=== PATIENT | female | born 1955 | race African-American/Black ===

== ENCOUNTER 2022-05-03 15:28 | Inpatient (IN) | payer OTHER ==
[2022-05-03 17:40] VITALS: BMI 22.2
[2022-05-03] MEDS ORDERED: MAGNESIUM CITRATE 300 ML BOTTLE PO PRN (18:22)
[2022-05-03] MEDS ORDERED: ACETAMINOPHEN 325 MG TABLET (FP) PO PRN (18:22)
[2022-05-03] MEDS ORDERED: MAGNESIUM HYDROX 2400MG/30ML ORAL SUSPENSION 30 ML CUP PO PRN (18:22)
[2022-05-03] MEDS ORDERED: guaiFENesin 200 MG/10 ML 10 ML UNIT-DOSE CUPS PO PRN (18:22)
[2022-05-03] MEDS ORDERED: LOPERAMIDE HCL 2 MG CAPSULE PO PRN (18:22)
[2022-05-03] MEDS ORDERED: P-EPHED 60MG/TRIPROLIDI 2.5MG TABLET PO PRN (18:22)
[2022-05-03] MEDS ORDERED: MAG HYDROX/AL HYDROX/SIMETH 30 ML UNIT-DOSE CUP PO PRN (18:22)
[2022-05-03] MEDS ORDERED: cloNIDine HCL 0.1 MG TABLET PO ONE (22:30)
[2022-05-03] MEDS: THIAMINE HCL 100 MG TABLET (FP) PO SCH (22:31)
[2022-05-03] MEDS: ATORVASTATIN CA 20 MG TABLET (FP) PO SCH (22:31)
[2022-05-03] MEDS: APIXABAN 5 MG TABLET PO SCH (22:31)
[2022-05-03] MEDS: MELATONIN 5 MG TABLETS PO SCH (22:31)
[2022-05-03] MEDS: GABAPENTIN 300 MG CAPSULE PO SCH (22:31)
[2022-05-03] MEDS: hydrOXYzine PAMOATE 25 MG CAPSULE (FP) PO SCH (22:31)
[2022-05-03] MEDS: PRENATAL VITAMINS W/ FOLIC ACID TABLET (FP) PO SCH (22:32)
[2022-05-03] MEDS: NICOTINE 7 MG/24 HOURS TOPICAL PATCH TD SCH (22:33)
[2022-05-04] MEDS: hydrOXYzine PAMOATE 25 MG CAPSULE (FP) PO SCH ×5 (07:41→22:02)
[2022-05-04] MEDS ORDERED: LIDOCAINE 5% TOPICAL PATCH TP SCH (10:00)
[2022-05-04] MEDS ORDERED: MULTIVITAMINS (DAILY MVI) TABLET (FP) PO SCH (10:00)
[2022-05-04] MEDS: PRENATAL VITAMINS W/ FOLIC ACID TABLET (FP) PO SCH (10:09)
[2022-05-04] MEDS: GABAPENTIN 300 MG CAPSULE PO SCH ×2 (10:09→21:27)
[2022-05-04] MEDS: ASPIRIN COATED 81 MG TABLET.EC PO SCH (10:09)
[2022-05-04] MEDS: FOLIC ACID 1 MG TABLET (FP) PO SCH (10:10)
[2022-05-04] MEDS: NICOTINE 7 MG/24 HOURS TOPICAL PATCH TD SCH (10:10)
[2022-05-04] MEDS: amLODIPine BESYLATE 10 MG TABLET (FP) PO SCH (10:10)
[2022-05-04] MEDS: FLUoxetine HCL 20 MG CAPSULE PO SCH (10:10)
[2022-05-04] MEDS: LIDOCAINE 5% TOPICAL PATCH TP SCH (10:11)
[2022-05-04] MEDS: APIXABAN 5 MG TABLET PO SCH ×2 (11:25→21:27)
[2022-05-04 14:01] LABS: HEMATOCRIT 40.3 % (32.4-45.2); HEMOGLOBIN 13.2 GM/dL (10.7-15.3); MCH 25.6 pg (25.7-33.7); MCHC 32.8 g/dl (32.0-36.0); MEAN CELL VOLUME 78.2 fl (80-96); MEAN PLT VOLUME 8.8 fl (7.5-11.1); PLATELET COUNT 316 10^3/uL (134-434); RBC 5.15 M/mm3 (3.60-5.2); WHITE BLOOD COUNT 7.9 K/mm3 (4.0-10.0)
[2022-05-04 14:08] LABS: ALBUMIN 4.5 g/dl (3.4-5.0); BLOOD UREA NITROGEN 15.1 mg/dL (7-18); CALCIUM 10.4 mg/dL (8.5-10.1)
[2022-05-04 14:12] LABS: BILIRUBIN,TOTAL 1.1 mg/dL (0.2-1); CREATININE 1.1 mg/dL (0.55-1.3)
[2022-05-04 14:13] LABS: TOT PROT 8.3 g/dl (6.4-8.2)
[2022-05-04 14:24] LABS: SYPHILIS W/ RPR CONF NON-REACTIVE (NONREACTIVE)
[2022-05-04 17:35] VITALS: RESP 18
[2022-05-04] MEDS: THIAMINE HCL 100 MG TABLET (FP) PO SCH (21:27)
[2022-05-04] MEDS: ATORVASTATIN CA 20 MG TABLET (FP) PO SCH (21:27)
[2022-05-04] MEDS: LIDOCAINE PATCH REMOVAL MC SCH (22:02)
[2022-05-04] MEDS: MELATONIN 5 MG TABLETS PO SCH (22:02)
[2022-05-05] MEDS: hydrOXYzine PAMOATE 25 MG CAPSULE (FP) PO SCH ×4 (07:06→21:11)
[2022-05-05] MEDS: PRENATAL VITAMINS W/ FOLIC ACID TABLET (FP) PO SCH (09:48)
[2022-05-05] MEDS: APIXABAN 5 MG TABLET PO SCH ×2 (09:49→21:09)
[2022-05-05] MEDS: FLUoxetine HCL 20 MG CAPSULE PO SCH ×2 (09:49→09:53)
[2022-05-05] MEDS: amLODIPine BESYLATE 10 MG TABLET (FP) PO SCH (09:49)
[2022-05-05] MEDS: GABAPENTIN 300 MG CAPSULE PO SCH ×2 (09:49→21:09)
[2022-05-05] MEDS: FOLIC ACID 1 MG TABLET (FP) PO SCH (09:49)
[2022-05-05] MEDS: ASPIRIN COATED 81 MG TABLET.EC PO SCH (09:49)
[2022-05-05] MEDS: LIDOCAINE 5% TOPICAL PATCH TP SCH (09:50)
[2022-05-05] MEDS: NICOTINE 7 MG/24 HOURS TOPICAL PATCH TD SCH (09:51)
[2022-05-05] MEDS: THIAMINE HCL 100 MG TABLET (FP) PO SCH (21:11)
[2022-05-05] MEDS: MELATONIN 5 MG TABLETS PO SCH (22:46)
[2022-05-05] MEDS: ATORVASTATIN CA 20 MG TABLET (FP) PO SCH (22:46)
[2022-05-05] MEDS: LIDOCAINE PATCH REMOVAL MC SCH (22:46)
[2022-05-06] MEDS: hydrOXYzine PAMOATE 25 MG CAPSULE (FP) PO SCH ×2 (06:14→09:55)
[2022-05-06] MEDS: NICOTINE 7 MG/24 HOURS TOPICAL PATCH TD SCH (09:53)
[2022-05-06] MEDS: PRENATAL VITAMINS W/ FOLIC ACID TABLET (FP) PO SCH (09:53)
[2022-05-06] MEDS: GABAPENTIN 300 MG CAPSULE PO SCH ×2 (09:54→21:10)
[2022-05-06] MEDS: FOLIC ACID 1 MG TABLET (FP) PO SCH (09:54)
[2022-05-06] MEDS: amLODIPine BESYLATE 10 MG TABLET (FP) PO SCH (09:54)
[2022-05-06] MEDS: ASPIRIN COATED 81 MG TABLET.EC PO SCH (09:54)
[2022-05-06] MEDS: LIDOCAINE 5% TOPICAL PATCH TP SCH (09:55)
[2022-05-06] MEDS: FLUoxetine HCL 20 MG CAPSULE PO SCH (09:56)
[2022-05-06] MEDS: APIXABAN 5 MG TABLET PO SCH ×2 (09:56→21:10)
[2022-05-06 10:35] LABS: URINE APPEARANCE CLEAR; URINE BILIRUBIN NEGATIVE (NEGATIVE); URINE COLOR YELLOW; URINE GLUCOSE (UA) TRACE (NEGATIVE); URINE KETONE NEGATIVE (NEGATIVE); URINE LEUK ESTERASE NEGATIVE (NEGATIVE); URINE NITRITE NEGATIVE (NEGATIVE); URINE PROTEIN NEGATIVE (NEGATIVE); URINE UROBILINOGEN 0.2 mg/dL (0.2-1.0)
[2022-05-06] MEDS ORDERED: hydrOXYzine PAMOATE 25 MG CAPSULE (FP) PO PRN (12:17)
[2022-05-06] MEDS ORDERED: NICOTINE 10 MG CARTRIDGE (INHALER) IH PRN (14:07)
[2022-05-06] MEDS: ATORVASTATIN CA 20 MG TABLET (FP) PO SCH (21:11)
[2022-05-06] MEDS: MELATONIN 5 MG TABLETS PO SCH (21:12)
[2022-05-06] MEDS: THIAMINE HCL 100 MG TABLET (FP) PO SCH (21:12)
[2022-05-06] MEDS: LIDOCAINE PATCH REMOVAL MC SCH (22:10)
[2022-05-07] MEDS: GABAPENTIN 300 MG CAPSULE PO SCH ×2 (09:51→21:11)
[2022-05-07] MEDS: PRENATAL VITAMINS W/ FOLIC ACID TABLET (FP) PO SCH (09:51)
[2022-05-07] MEDS: LIDOCAINE 5% TOPICAL PATCH TP SCH (09:51)
[2022-05-07] MEDS: ASPIRIN COATED 81 MG TABLET.EC PO SCH (09:52)
[2022-05-07] MEDS: amLODIPine BESYLATE 10 MG TABLET (FP) PO SCH (09:52)
[2022-05-07] MEDS: FLUoxetine HCL 20 MG CAPSULE PO SCH (09:52)
[2022-05-07] MEDS: FOLIC ACID 1 MG TABLET (FP) PO SCH (09:52)
[2022-05-07] MEDS: APIXABAN 5 MG TABLET PO SCH ×2 (09:52→21:11)
[2022-05-07] MEDS: MELATONIN 5 MG TABLETS PO SCH (21:12)
[2022-05-07] MEDS: ATORVASTATIN CA 20 MG TABLET (FP) PO SCH (21:12)
[2022-05-07] MEDS: LIDOCAINE PATCH REMOVAL MC SCH (21:12)
[2022-05-07] MEDS: THIAMINE HCL 100 MG TABLET (FP) PO SCH (21:12)
[2022-05-08] MEDS: amLODIPine BESYLATE 10 MG TABLET (FP) PO SCH (09:41)
[2022-05-08] MEDS: GABAPENTIN 300 MG CAPSULE PO SCH ×2 (09:41→21:15)
[2022-05-08] MEDS: PRENATAL VITAMINS W/ FOLIC ACID TABLET (FP) PO SCH (09:41)
[2022-05-08] MEDS: ASPIRIN COATED 81 MG TABLET.EC PO SCH (09:41)
[2022-05-08] MEDS: FOLIC ACID 1 MG TABLET (FP) PO SCH (09:41)
[2022-05-08] MEDS: FLUoxetine HCL 20 MG CAPSULE PO SCH (09:42)
[2022-05-08] MEDS: LIDOCAINE 5% TOPICAL PATCH TP SCH (09:42)
[2022-05-08] MEDS: APIXABAN 5 MG TABLET PO SCH ×2 (09:42→21:15)
[2022-05-08] MEDS: MELATONIN 5 MG TABLETS PO SCH (21:15)
[2022-05-08] MEDS: ATORVASTATIN CA 20 MG TABLET (FP) PO SCH (21:15)
[2022-05-08] MEDS: LIDOCAINE PATCH REMOVAL MC SCH (21:16)
[2022-05-08] MEDS: THIAMINE HCL 100 MG TABLET (FP) PO SCH (21:16)
[2022-05-09] MEDS: APIXABAN 5 MG TABLET PO SCH ×2 (09:47→21:10)
[2022-05-09] MEDS: amLODIPine BESYLATE 10 MG TABLET (FP) PO SCH (09:47)
[2022-05-09] MEDS: LIDOCAINE 5% TOPICAL PATCH TP SCH (09:47)
[2022-05-09] MEDS: PRENATAL VITAMINS W/ FOLIC ACID TABLET (FP) PO SCH (09:47)
[2022-05-09] MEDS: ASPIRIN COATED 81 MG TABLET.EC PO SCH (09:47)
[2022-05-09] MEDS: GABAPENTIN 300 MG CAPSULE PO SCH ×2 (09:47→21:10)
[2022-05-09] MEDS: FOLIC ACID 1 MG TABLET (FP) PO SCH (09:47)
[2022-05-09] MEDS: FLUoxetine HCL 20 MG CAPSULE PO SCH (09:49)
[2022-05-09] MEDS: LIDOCAINE PATCH REMOVAL MC SCH (21:11)
[2022-05-09] MEDS: THIAMINE HCL 100 MG TABLET (FP) PO SCH (21:11)
[2022-05-09] MEDS: ATORVASTATIN CA 20 MG TABLET (FP) PO SCH (21:12)
[2022-05-09] MEDS: MELATONIN 5 MG TABLETS PO SCH (21:12)
[2022-05-10] MEDS: LIDOCAINE 5% TOPICAL PATCH TP SCH (09:53)
[2022-05-10] MEDS: PRENATAL VITAMINS W/ FOLIC ACID TABLET (FP) PO SCH (09:53)
[2022-05-10] MEDS: ASPIRIN COATED 81 MG TABLET.EC PO SCH (09:54)
[2022-05-10] MEDS: FOLIC ACID 1 MG TABLET (FP) PO SCH (09:54)
[2022-05-10] MEDS: GABAPENTIN 300 MG CAPSULE PO SCH ×2 (09:54→21:11)
[2022-05-10] MEDS: amLODIPine BESYLATE 10 MG TABLET (FP) PO SCH (09:54)
[2022-05-10] MEDS: FLUoxetine HCL 20 MG CAPSULE PO SCH (09:55)
[2022-05-10] MEDS: APIXABAN 5 MG TABLET PO SCH ×2 (09:55→21:11)
[2022-05-10] MEDS: ATORVASTATIN CA 20 MG TABLET (FP) PO SCH (21:14)
[2022-05-10] MEDS: LIDOCAINE PATCH REMOVAL MC SCH (21:15)
[2022-05-10] MEDS: MELATONIN 5 MG TABLETS PO SCH (21:15)
[2022-05-10] MEDS: THIAMINE HCL 100 MG TABLET (FP) PO SCH (21:15)
[2022-05-11] MEDS: PRENATAL VITAMINS W/ FOLIC ACID TABLET (FP) PO SCH (09:55)
[2022-05-11] MEDS: amLODIPine BESYLATE 10 MG TABLET (FP) PO SCH (09:56)
[2022-05-11] MEDS: GABAPENTIN 300 MG CAPSULE PO SCH ×2 (09:56→21:53)
[2022-05-11] MEDS: ASPIRIN COATED 81 MG TABLET.EC PO SCH (09:56)
[2022-05-11] MEDS: APIXABAN 5 MG TABLET PO SCH ×2 (09:56→21:53)
[2022-05-11] MEDS: FOLIC ACID 1 MG TABLET (FP) PO SCH (09:56)
[2022-05-11] MEDS: FLUoxetine HCL 20 MG CAPSULE PO SCH ×2 (09:56→09:59)
[2022-05-11] MEDS: LIDOCAINE 5% TOPICAL PATCH TP SCH (09:58)
[2022-05-11] MEDS: THIAMINE HCL 100 MG TABLET (FP) PO SCH (21:53)
[2022-05-11] MEDS: ATORVASTATIN CA 20 MG TABLET (FP) PO SCH (21:55)
[2022-05-11] MEDS: MELATONIN 5 MG TABLETS PO SCH (21:56)
[2022-05-11] MEDS: LIDOCAINE PATCH REMOVAL MC SCH (21:56)
[2022-05-12] MEDS: PRENATAL VITAMINS W/ FOLIC ACID TABLET (FP) PO SCH (09:48)
[2022-05-12] MEDS: LIDOCAINE 5% TOPICAL PATCH TP SCH (09:48)
[2022-05-12] MEDS: APIXABAN 5 MG TABLET PO SCH ×2 (09:49→21:18)
[2022-05-12] MEDS: GABAPENTIN 300 MG CAPSULE PO SCH ×2 (09:49→21:19)
[2022-05-12] MEDS: FOLIC ACID 1 MG TABLET (FP) PO SCH (09:49)
[2022-05-12] MEDS: amLODIPine BESYLATE 10 MG TABLET (FP) PO SCH (09:49)
[2022-05-12] MEDS: ASPIRIN COATED 81 MG TABLET.EC PO SCH (09:49)
[2022-05-12] MEDS: FLUoxetine HCL 20 MG CAPSULE PO SCH (09:49)
[2022-05-12] MEDS: THIAMINE HCL 100 MG TABLET (FP) PO SCH (21:19)
[2022-05-12] MEDS: MELATONIN 5 MG TABLETS PO SCH (21:19)
[2022-05-12] MEDS: ATORVASTATIN CA 20 MG TABLET (FP) PO SCH (21:19)
[2022-05-12] MEDS: LIDOCAINE PATCH REMOVAL MC SCH (21:57)
[2022-05-13 07:30] VITALS: BP 145/91; PULSE 75; TEMP 97.8
[2022-05-13] MEDS: PRENATAL VITAMINS W/ FOLIC ACID TABLET (FP) PO SCH (11:02)
[2022-05-13] MEDS: amLODIPine BESYLATE 10 MG TABLET (FP) PO SCH (11:05)
[2022-05-13] MEDS: GABAPENTIN 300 MG CAPSULE PO SCH (11:05)
[2022-05-13] MEDS: ASPIRIN COATED 81 MG TABLET.EC PO SCH (11:05)
[2022-05-13] MEDS: FLUoxetine HCL 20 MG CAPSULE PO SCH (11:05)
[2022-05-13] MEDS: FOLIC ACID 1 MG TABLET (FP) PO SCH (11:05)
[2022-05-13] MEDS: APIXABAN 5 MG TABLET PO SCH (11:06)
[2022-05-13] MEDS: LIDOCAINE 5% TOPICAL PATCH TP SCH (11:06)
== END 2022-05-13 12:10 | disposition home or self-care (01) | DRG 895 ==
LOC: YASAS 15:28 → UNDOADMIN 18:02 → Y6N 18:02 → Y5N 19:09
PROVIDERS: ADMIT Allergy & Immunology; ATTEND Psychiatry & Neurology Pain Medicine
PROC: HZ42ZZZ Group Counseling for Substance Abuse Treatment, Cognitive-Behavioral (ICD-10-PCS; principal; 2022-05-03)
PROC: HZ42ZZZ Group Counseling for Substance Abuse Treatment, Cognitive-Behavioral (ICD-10-PCS; 2022-05-03)
DX: F11.20 Opioid dependence, uncomplicated (principal); F33.1 Major depressive disorder, recurrent, moderate; F19.282 Other psychoactive substance dependence with psychoactive substance-induced sleep disorder; I69.854 Hemiplegia and hemiparesis following other cerebrovascular disease affecting left non-dominant side; F12.20 Cannabis dependence, uncomplicated; F17.210 Nicotine dependence, cigarettes, uncomplicated; E78.5 Hyperlipidemia, unspecified; I10 Essential (primary) hypertension; M15.9 Polyosteoarthritis, unspecified; R26.89 Other abnormalities of gait and mobility; Z99.89 Dependence on other enabling machines and devices; Z59.01 Sheltered homelessness
CPT/HCPCS: 36415; 71046-TC-FY; 80053; 81003; 85027; 86780; 86803; 87811; 93005; 93010; C9803-CS; U0003; U0005